=== PATIENT | male | born 1950 | race Caucasian/White ===

== ENCOUNTER → 2016-05-31 | Outpatient (CLI) | payer OTHER ==
[2016-05-31 10:02] LABS: BASOPHILS # (AUTO) 0.04 10*3/UL; BASOPHILS % (AUTO) 0.4 % (0-1); EOSINOPHILS % (AUTO) 3.1 % (0-8); HEMATOCRIT 43.6 % (42.0-52.0); HEMOGLOBIN 14.1 g/dL (14.0-18.0); IMM GRAN % (AUTO) 0.2 % (0-5); IMM GRAN# (AUTO) 0.02 10*3/UL; LYMPHOCYTES # (AUTO) 1.67 10*3/uL; LYMPHOCYTES % (AUTO) 16.3 % (10-50); MEAN CORPUSCULAR HEMOGLOBIN 29.9 PG (27-31); MEAN CORPUSCULAR HGB CONC 32.3 g/dL (33-37); MEAN PLATELET VOLUME 10.2 FL (7.4-12.2); MONOCYTES # (AUTO) 1.08 10*3/UL (0.3-0.8); MONOCYTES % (AUTO) 10.6 % (5-15); NEUTROPHILS % (AUTO) 69.4 % (50-80); RDW COEFFICIENT OF VARIATION 13.5 % (11.5-14.5); RED BLOOD COUNT 4.71 10^6/uL (4.70-6.10); WHITE BLOOD COUNT 10.23 10^3/uL (4.8-10.8)
[2016-05-31 10:08] LABS: BILIRUBIN,TOTAL 0.6 mg/dL (0.3-1.2); BUN/CREATININE RATIO 11.9 (6-20); CALCIUM 9.5 mg/dL (8.7-10.7); CREATININE 2.1 mg/dL (0.70-1.50); POTASSIUM 4.1 meq/L (3.8-5.2); PROTHROMBIN TIME 10.8 secs (9.7-11.4); TOTAL PROTEIN 7.4 g/dL (6.1-8.0)
[2016-05-31 10:16] LABS: PLATELET MORPHOLOGY COMMENT NORMAL MORPHOLOGY (NORM)
[2016-05-31 10:26] LABS: HEMOGLOBIN A1C 5.68 % (4.2-6.0); MEAN BLOOD GLUCOSE (CALC) 103.144 mg/dL
== END ==
LOC: LAB 09:39
PROVIDERS: ATTEND Physician Assistant
DX: E11.9 Type 2 diabetes mellitus without complications (principal); I10 Essential (primary) hypertension; S99.812A Other specified injuries of left ankle, initial encounter; S80.12XA Contusion of left lower leg, initial encounter
CPT/HCPCS: 36415; 80053; 83036; 85025; 85610; 85730

== ENCOUNTER → 2016-07-08 | Outpatient (CLI) | payer OTHER ==
[2016-07-08 16:31] LABS: BILIRUBIN,URINE NEGATIVE (NEG); COLOR,URINE YELLOW; GLUCOSE, URINE (UA) NEGATIVE (NEG); NITRATE,URINE NEGATIVE (NEG); OCCULT BLOOD,URINE Trace-intact (NEG); PROTEIN,URINE TRACE mg/dl (NEG); UROBILINOGEN,URINE 0.2 mg/dL (0.2)
[2016-07-08 16:49] LABS: CREATININE, URINE 126.6 MG/DL (15-500)
[2016-07-08 16:50] LABS: CLARITY,URINE CLEAR (CLEAR); RBC,URINE 0-2 /hpf; URINE CASTS FEW; URINE SAMPLE TYPE VOID
== END ==
LOC: MOB LAB 15:43
DX: E11.9 Type 2 diabetes mellitus without complications (principal)
CPT/HCPCS: 81001; 82043